=== PATIENT | male | born 1950 | race Caucasian/White ===

== ENCOUNTER 2023-02-12 09:18 | Emergency (ER) | payer OTHER, SELFPAY ==
[2023-02-12] VITALS (95 sets, daily range): BP systolic 74–138; BP diastolic 38–105; PULSE 56–138; RESP 18–36; TEMP 36.4; O2SAT 93–99; BMI 28.7
--- NOTE | 2023-02-12 09:25 | ED.FALL ---
HPI - Fall General Chief Complaint: Dizziness Stated Complaint: fall x 3 Time Seen by Provider: 02/12/23 09:22 History of Present Illness HPI Narrative: Patient is a 72-year-old male past medical history diabetes, hypertension presenting today with generalized weakness. He reports that he is not been feeling well for a couple of days he fell 3 times yesterday. Not sure of any injury but both knees hurt. He has been little dizzy and lightheaded. No obvious chest pain palpitations or shortness breath. He is no abdominal pain nausea or vomiting. He does not have any fever or chills. He has a decreased appetite decreased intake. Not on any anticoagulation medications. Patient reports that he did travel in a car to [place] last week but made frequent stops. He is complaining of right ankle pain and right thumb pain. He injured it during 1 of the falls Related Data Allergies Allergy/AdvReac Type Severity Reaction Status Date / Time ramipril Allergy Intermediate Cough Verified 02/12/23 18:05 Review of Systems Review of Systems ROS Unobtainable: All systems reviewed & are unremarkable except as noted in HPI and below Patient History Social History Smoking Status: Never smoker Exam Initial Vital Signs Initial Vital Signs: Vital Signs Pulse Rate 82 02/12/23 09:22 Blood Pressure 116/73 02/12/23 09:22 Pulse Oximetry 96 02/12/23 09:22 GENERAL: Alert week 72-year-old male and in no acute distress. HEENT: Head atraumatic,EOMI, pupils reactive, face symmetric, moist mucous membranes CARDIOVASCULAR: Regular rate and rhythm without murmurs, rubs or gallops. RESPIRATORY: Breath sounds equal bilaterally, no wheezes rales or rhonchi. ABDOMEN: Soft, nontender. Normoactive bowel sounds all 4 quadrants. No guarding or rebound. EXTREMITIES: Normal range of motion, no clubbing or edema. Neurovascularly intact NEUROLOGICAL: Alert and oriented x4.Normal gait and speech. SKIN: Warm, dry, no laceration, no petechiae, no rashes or lesions. Procedures Central Line Placement Right IJ: Patient Placed on Monitor/Pulse Ox: Yes MD Prep: mask, gown and gloves Central Line Prep: Chlorhexidine scrub and sterile drapes applied Local Anesthetic: lidocaine 1% Amount of anesthesia used (mL): 3 Ultrasound Used for Placement: Yes Central Line Lumen Inserted: triple Post Procedure: good blood return, all ports aspirated, flushed, capped, sterile dressing applied and line stabilization device Post Procedure X-Ray: tip of catheter in good position and no pneumothorax seen Patient Tolerated Procedure: Well and No complications Orthopedic Splinting/Casting Injury #1: Lower Extremity Injury Location: ankle Lower Extremity Immobilizer: posterior splint and stirrup splint Other Orthopedic Equipment: crutches Post splinting neuro exam: intact and no change Post splinting vascular exam: no change Placed by: Nursing Course Orders Ordered: ED Orders 02/12/23 11:01 UA Complete [Urinalysis and Microscopic] Stat 02/12/23 11:45 EKG-12 Lead Stat 02/12/23 11:52 Trop I [Troponin I] Stat 02/12/23 12:35 TSH [Thyroid Stimulating Hormone] Stat 02/12/23 12:36 MAG [Magnesium] Stat 02/12/23 14:56 CT angio chest PE protocol Stat BNP [NT-proBNP (BNP-Adult 18+)] Stat 02/12/23 15:25 EC echo limited Stat 02/12/23 17:26 Chest [XR chest 1V] Stat 02/12/23 22:15 PTT Partial Thromboplastin Lazarus Q6H 02/13/23 04:15 PTT Partial Thromboplastin Lazraus Q6H 02/13/23 05:00 Hemoglobin and Hematocrit DAILY Platelet Count DAILY 02/13/23 10:15 PTT Partial Thromboplastin Lazarus Q6H 02/14/23 05:00 Hemoglobin and Hematocrit DAILY Platelet Count DAILY Sodium Chloride (Normal Saline 0.9%) 1,000 mls @ 1,000 mls/hr IV CONT DULCE Last Infusion: 02/12/23 11:05 Dose: 0 mls/hr Documented By: Admin: 02/12/23 10:23 Dose: 1,000 mls/hr Documented By: RICHMOND NOREPINEPHRINE BITARTRATE/D5W (Levophed) 4 mg in 250 mls @ 34.019 mls/hr IV TITRATE DULCE; Protocol Last Titration: 02/12/23 19:18 Dose: 0 mcg/kg/min, 0 mls/hr Documented By: Admin: 02/12/23 19:06 Dose: 0.1 mcg/kg/min, 34.019 mls/hr Documented By: RICHMOND Heparin Sodium/Dextrose (Heparin Drip) 25,000 unit in 500 mls @ 32.658 mls/hr IV CONT DULCE; Protocol Last Admin: 02/12/23 19:25 Dose: 18 units/kg/hr, 32.658 mls/hr Documented By: RICHMOND Co-signed By: THOMAS Discontinued Medications Hydrocodone Bitart/Acetaminophen (Hydrocodone/Acet 5/325 Tablet) 1 tab PO NOW ONE Stop: 02/12/23 18:50 Last Admin: 02/12/23 18:54 Dose: 1 tab Documented By: RICHMOND Diltiazem HCl (Diltiazem 5 Mg/Ml Sdv) 10 mg IV NOW ONE Stop: 02/12/23 10:39 Last Admin: 02/12/23 10:56 Dose: 10 mg Documented By: RICHMOND Heparin Sodium (Porcine) (Heparin 5,000 Unit/Ml Vial) 7,300 unit 80 unit/kg (7300 unit) IV NOW ONE Stop: 02/12/23 16:13 Last Admin: 02/12/23 16:47 Dose: 7,300 unit Documented By: RICHMOND Sodium Chloride (Normal Saline 0.9%) 1,000 mls @ 1,000 mls/hr IV BOLUS ONE Stop: 02/12/23 11:37 Last Infusion: 02/12/23 12:32 Dose: 0 mls/hr Documented By: Admin: 02/12/23 11:05 Dose: 1,000 mls/hr Documented By: RICHMOND Magnesium Sulfate (Magnesium Sulfate) 2 gm in 50 mls @ 25 mls/hr IV NOW ONE Stop: 02/12/23 15:37 Last Infusion: 02/12/23 18:05 Dose: 0 mls/hr Documented By: RICHMOND Co-signed By: AMV Infusion: 02/12/23 15:50 Dose: 0 mls/hr Documented By: RICHMOND Co-signed By: MERVAT Admin: 02/12/23 14:34 Dose: 25 mls/hr Documented By: SEFERINO Co-signed By: RICHMOND Sodium Chloride (Normal Saline 0.9%) 1,000 mls @ 1,000 mls/hr IV BOLUS ONE Stop: 02/12/23 16:12 Last Infusion: 02/12/23 16:22 Dose: 0 mls/hr Documented By: Admin: 02/12/23 15:32 Dose: 1,000 mls/hr Documented By: RICHMOND Sodium Chloride (Normal Saline 0.9%) 1,000 mls @ 1,000 mls/hr IV BOLUS ONE Stop: 02/12/23 16:14 Last Infusion: 02/12/23 19:19 Dose: 0 mls/hr Documented By: Admin: 02/12/23 16:23 Dose: 1,000 mls/hr Documented By: RICHMOND Alteplase, Recombinant (Activase) 50 mg in 50 mls @ 25 mls/hr IV NOW ONE Stop: 02/12/23 19:14 Last Infusion: 02/12/23 19:24 Dose: 0 mls/hr Documented By: Admin: 02/12/23 17:32 Dose: 25 mls/hr Documented By: RICHMOND Ketorolac Tromethamine (Ketorolac 30 Mg/Ml Vial) 15 mg IV NOW ONE Stop: 02/12/23 12:52 Last Admin: 02/12/23 13:17 Dose: 15 mg Documented By: RICHMOND Metoprolol Tartrate (Metoprolol Tartrate 5 Mg/5 Ml Inj) 5 mg IV NOW ONE Stop: 02/12/23 13:11 Last Admin: 02/12/23 13:20 Dose: 5 mg Documented By: RICHMOND Potassium Chloride (Potassium Chloride 20 Meq Tab) 40 meq PO NOW ONE Stop: 02/12/23 12:39 Last Admin: 02/12/23 13:16 Dose: 40 meq Documented By: RICHMOND Vital Signs Vital signs: Vital Signs - 8 hr 02/12/23 12:00 02/12/23 12:00 02/12/23 12:15 Pulse Rate 67 Respiratory Rate 21 Blood Pressure 134/74 91/62 Pulse Oximetry 97 Oxygen Delivery Method 02/12/23 12:15 02/12/23 12:20 02/12/23 12:21 Pulse Rate 128 H 85 Respiratory Rate 24 22 Blood Pressure 138/79 Pulse Oximetry 96 97 Oxygen Delivery Method 02/12/23 12:21 02/12/23 12:30 02/12/23 12:31 Pulse Rate 74 95 H Respiratory Rate 22 24 Blood Pressure 122/96 H Pulse Oximetry 97 96 Oxygen Delivery Method 02/12/23 12:31 02/12/23 12:45 02/12/23 12:46 Pulse Rate 74 127 H Respiratory Rate 24 21 Blood Pressure 95/45 L Pulse Oximetry 96 95 Oxygen Delivery Method 02/12/23 12:46 02/12/23 13:00 02/12/23 13:06 Pulse Rate 71 127 H Respiratory Rate 20 26 H Blood Pressure 117/60 Pulse Oximetry 96 96 Oxygen Delivery Method 02/12/23 13:06 02/12/23 13:15 02/12/23 13:15 Pulse Rate 70 128 H Respiratory Rate 21 19 Blood Pressure 99/61 Pulse Oximetry 96 95 Oxygen Delivery Method Room Air 02/12/23 13:25 02/12/23 13:25 02/12/23 13:30 Pulse Rate 131 H Respiratory Rate 27 H Blood Pressure 119/87 116/83 Pulse Oximetry 96 Oxygen Delivery Method 02/12/23 13:30 02/12/23 13:45 02/12/23 13:46 Pulse Rate 58 L 73 Respiratory Rate 23 21 Blood Pressure 104/51 L Pulse Oximetry 96 96 Oxygen Delivery Method 02/12/23 13:46 02/12/23 13:50 02/12/23 13:55 Pulse Rate 56 L 57 L 88 Respiratory Rate 21 23 18 Blood Pressure Pulse Oximetry 96 96 95 Oxygen Delivery Method 02/12/23 14:00 02/12/23 14:00 02/12/23 14:05 Pulse Rate 71 60 Respiratory Rate 22 22 Blood Pressure 92/54 L Pulse Oximetry 94 94 Oxygen Delivery Method 02/12/23 14:10 02/12/23 14:15 02/12/23 14:15 Pulse Rate 89 113 H Respiratory Rate 24 22 Blood Pressure 89/54 L Pulse Oximetry 96 95 Oxygen Delivery Method 02/12/23 14:20 02/12/23 14:22 02/12/23 14:22 Pulse Rate 117 H 114 H Respiratory Rate 22 20 Blood Pressure 90/55 L Pulse Oximetry 95 95 Oxygen Delivery Method Room Air 02/12/23 14:25 02/12/23 14:26 02/12/23 14:26 Pulse Rate 68 66 Respiratory Rate 19 20 Blood Pressure 112/65 Pulse Oximetry 96 95 Oxygen Delivery Method 02/12/23 14:30 02/12/23 14:30 02/12/23 14:33 Pulse Rate 117 H 124 H Respiratory Rate 24 Blood Pressure 74/52 L 79/38 L Pulse Oximetry 94 Oxygen Delivery Method 02/12/23 14:33 02/12/23 14:35 02/12/23 14:35 Pulse Rate 114 H 119 H Respiratory Rate 23 22 Blood Pressure 110/64 Pulse Oximetry 94 94 Oxygen Delivery Method Room Air 02/12/23 14:41 02/12/23 14:45 02/12/23 14:50 Pulse Rate 61 117 H Respiratory Rate 20 23 Blood Pressure 95/58 L 93/51 L Pulse Oximetry 94 94 Oxygen Delivery Method Room Air 02/12/23 14:50 02/12/23 14:55 02/12/23 14:55 Pulse Rate 118 H 117 H Respiratory Rate 22 22 Blood Pressure 94/57 L Pulse Oximetry 94 94 Oxygen Delivery Method 02/12/23 15:00 02/12/23 15:05 02/12/23 15:05 Pulse Rate 117 H 118 H Respiratory Rate 22 21 Blood Pressure 83/59 L Pulse Oximetry 94 94 Oxygen Delivery Method 02/12/23 15:10 02/12/23 15:10 02/12/23 15:25 Pulse Rate 119 H Respiratory Rate 21 Blood Pressure 85/58 L 84/62 L Pulse Oximetry 94 Oxygen Delivery Method Room Air 02/12/23 15:25 02/12/23 15:27 02/12/23 15:27 Pulse Rate 118 H 118 H Respiratory Rate 28 H 23 Blood Pressure 105/59 L Pulse Oximetry 94 94 Oxygen Delivery Method 02/12/23 15:30 02/12/23 15:31 02/12/23 15:31 Pulse Rate 115 H 115 H Respiratory Rate 21 21 Blood Pressure 87/61 L Pulse Oximetry 93 93 Oxygen Delivery Method 02/12/23 15:35 02/12/23 15:35 02/12/23 15:37 Pulse Rate 115 H Respiratory Rate 22 Blood Pressure 86/56 L 78/57 L Pulse Oximetry 94 Oxygen Delivery Method 02/12/23 15:37 02/12/23 15:38 02/12/23 15:38 Pulse Rate 115 H 115 H Respiratory Rate 23 23 Blood Pressure 85/58 L Pulse Oximetry 95 94 Oxygen Delivery Method Room Air 02/12/23 15:40 02/12/23 15:41 02/12/23 15:41 Pulse Rate 117 H 117 H Respiratory Rate 28 H 27 H Blood Pressure 94/50 L Pulse Oximetry 94 94 Oxygen Delivery Method 02/12/23 15:45 02/12/23 15:50 02/12/23 15:50 Pulse Rate 118 H 119 H Respiratory Rate 25 H 20 Blood Pressure 93/59 L Pulse Oximetry 94 96 Oxygen Delivery Method 02/12/23 15:55 02/12/23 15:55 02/12/23 16:00 Pulse Rate 123 H Respiratory Rate 22 Blood Pressure 93/59 L 87/56 L Pulse Oximetry 94 Oxygen Delivery Method 02/12/23 16:00 02/12/23 16:05 02/12/23 16:05 Pulse Rate 121 H 75 Respiratory Rate 24 24 Blood Pressure 111/65 Pulse Oximetry 95 96 Oxygen Delivery Method 02/12/23 16:10 02/12/23 16:10 02/12/23 16:15 Pulse Rate 123 H Respiratory Rate 26 H Blood Pressure 104/54 L 88/52 L Pulse Oximetry 96 Oxygen Delivery Method 02/12/23 16:15 02/12/23 16:20 02/12/23 16:20 Pulse Rate 120 H 121 H Respiratory Rate 22 22 Blood Pressure 79/51 L Pulse Oximetry 96 96 Oxygen Delivery Method 02/12/23 16:22 02/12/23 16:22 02/12/23 16:25 Pulse Rate 121 H Respiratory Rate 29 H Blood Pressure 84/61 L 82/63 L Pulse Oximetry 96 Oxygen Delivery Method 02/12/23 16:25 02/12/23 16:28 02/12/23 16:28 Pulse Rate 121 H 120 H Respiratory Rate 24 21 Blood Pressure 86/60 L Pulse Oximetry 95 96 Oxygen Delivery Method 02/12/23 16:30 02/12/23 16:30 02/12/23 16:35 Pulse Rate 121 H Respiratory Rate 23 Blood Pressure 82/57 L 80/53 L Pulse Oximetry 95 Oxygen Delivery Method 02/12/23 16:35 02/12/23 16:37 02/12/23 16:37 Pulse Rate 122 H 121 H Respiratory Rate 22 22 Blood Pressure 89/51 L Pulse Oximetry 95 95 Oxygen Delivery Method 02/12/23 16:40 02/12/23 16:40 02/12/23 16:43 Pulse Rate 121 H Respiratory Rate 20 Blood Pressure 78/51 L 81/53 L Pulse Oximetry 95 Oxygen Delivery Method 02/12/23 16:43 02/12/23 16:45 02/12/23 16:45 Pulse Rate 120 H 121 H Respiratory Rate 23 31 H Blood Pressure 106/58 L Pulse Oximetry 95 Oxygen Delivery Method Room Air 02/12/23 16:49 02/12/23 16:50 02/12/23 16:50 Pulse Rate 109 H 101 H Respiratory Rate 26 H 26 H Blood Pressure 105/70 Pulse Oximetry 95 95 Oxygen Delivery Method 02/12/23 16:55 02/12/23 16:55 02/12/23 17:00 Pulse Rate 107 H 123 H Respiratory Rate 26 H 36 H Blood Pressure 97/63 Pulse Oximetry 94 Oxygen Delivery Method 02/12/23 17:02 02/12/23 17:02 02/12/23 17:05 Pulse Rate 123 H Respiratory Rate 27 H Blood Pressure 93/57 L 96/60 Pulse Oximetry Oxygen Delivery Method 02/12/23 17:05 02/12/23 17:10 02/12/23 17:10 Pulse Rate 123 H 112 H Respiratory Rate 25 H 24 Blood Pressure 106/57 L Pulse Oximetry 98 Oxygen Delivery Method 02/12/23 17:15 02/12/23 17:16 02/12/23 17:16 Pulse Rate 123 H 123 H Respiratory Rate 29 H 25 H Blood Pressure 113/55 L Pulse Oximetry 99 99 Oxygen Delivery Method 02/12/23 17:20 02/12/23 17:20 02/12/23 17:25 Pulse Rate 123 H Respiratory Rate 24 Blood Pressure 103/57 L 97/53 L Pulse Oximetry 98 Oxygen Delivery Method 02/12/23 17:25 02/12/23 17:30 02/12/23 17:31 Pulse Rate 124 H 125 H Respiratory Rate 24 30 H Blood Pressure 94/64 Pulse Oximetry 98 97 Oxygen Delivery Method 02/12/23 17:31 02/12/23 17:35 02/12/23 17:35 Pulse Rate 124 H 126 H Respiratory Rate 29 H 22 Blood Pressure 95/65 Pulse Oximetry 96 98 Oxygen Delivery Method 02/12/23 17:38 02/12/23 17:38 02/12/23 17:40 Pulse Rate 126 H Respiratory Rate 27 H Blood Pressure 108/64 103/66 Pulse Oximetry 98 Oxygen Delivery Method 02/12/23 17:40 Pulse Rate 127 H Respiratory Rate 23 Blood Pressure Pulse Oximetry 97 Oxygen Delivery Method MDM - Fall Lab Data 02/12/23 09:40 02/12/23 09:40 Labs: Lab Results 02/12/23 02/12/23 02/12/23 Range/Units 09:40 09:40 09:40 WBC 9.1 (4.5-11.0) X10^3/uL RBC 4.77 (4.5-5.9) X10^6/uL Hgb 14.8 (13.5-17.5) g/dL Hct 42.5 (41-53) % MCV 89.1 (80-100) fL MCH 31.0 (26-34) PG MCHC 34.7 (30-36) % RDW 13.6 (11.6-14.8) % Plt Count 130 L (150-400) X10^3/uL Neut % (Auto) 84.3 H (50-75) % Lymph % (Auto) 6.6 L (25-40) % [place] % (Auto) 8.0 (3-14) % Eos % (Auto) 0.7 L (2-4) % Baso % (Auto) 0.4 (0-2) % Neut # (Auto) 7700 H (0962-0397) /uL Lymph # (Auto) 600 L (7530-4941) /uL [place] # (Auto) 700 (0-900) /uL Eos # (Auto) 100 (0-450) /uL Baso # (Auto) 0 (0-100) /uL Sodium 135 L (137-145) mmol/L Potassium 3.8 (3.4-5.1) mmol/L Chloride 97 L (98-107) mmol/L Carbon Dioxide 26 (22-32) mmol/L BUN 39 H (9-20) mg/dL Creatinine 1.21 (0.66-1.25) mg/dL Estimated GFR > 60 (>60) mL/min BUN/Creatinine Ratio 32.2 H (6-22) Glucose 151 H (80-110) mg/dL Lactate 1.7 (0.7-2.1) mmol/L Calcium 9.9 (8.4-10.2) mg/dL Magnesium (1.6-2.3) mg/dL Total Bilirubin 0.9 (0.2-1.3) mg/dL AST 28 (17-59) IU/L ALT 27 (<50) IU/L Alkaline Phosphatase 71 (38-126) U/L Total Creatine Kinase 173 H (55-170) U/L Troponin I 0.096 H (0.01-0.034) ng/mL NT-Pro-B Natriuret Pep (<125) pg/mL Total Protein 7.1 (6.3-8.2) g/dL Albumin 4.0 (3.5-5.0) g/dL Globulin 3.1 (1.7-4.1) g/dL Albumin/Globulin Ratio 1.3 (1.0-2.8) Lipase 52 (23-300) U/L Procalcitonin 0.21 (<0.5) ng/mL TSH (0.47-4.68) uIU/mL Urine Color Urine Appearance Urine pH (4.5-8.0) Ur Specific Bastian (1.000-1.035) Urine Protein (Negative) Urine Glucose (UA) (Negative) g/dL Urine Ketones (NEGATIVE) Urine Occult Blood (Negative) Urine Nitrate (Negative) Urine Bilirubin (NEGATIVE) Urine Urobilinogen (0.2) E.U./dL Ur Leukocyte Esterase (NEGATIVE) Urine RBC (0-5/HPF) Urine WBC (0-5/HPF) Ur Squamous Epith Cells (0-5/HPF) Urine Bacteria (None) Ur Culture Indicated? SARS-CoV-2 (PCR) (Negative) Influenza A (RT-PCR) (NEGATIVE) Influenza B (RT-PCR) (NEGATIVE) RSV (PCR) (Negative) 02/12/23 02/12/23 02/12/23 Range/Units 09:40 11:01 11:52 WBC (4.5-11.0) X10^3/uL RBC (4.5-5.9) X10^6/uL Hgb (13.5-17.5) g/dL Hct (41-53) % MCV (80-100) fL MCH (26-34) PG MCHC (30-36) % RDW (11.6-14.8) % Plt Count (150-400) X10^3/uL Neut % (Auto) (50-75) % Lymph % (Auto) (25-40) % [place] % (Auto) (3-14) % Eos % (Auto) (2-4) % Baso % (Auto) (0-2) % Neut # (Auto) (2616-4183) /uL Lymph # (Auto) (8938-0032) /uL [place] # (Auto) (0-900) /uL Eos # (Auto) (0-450) /uL Baso # (Auto) (0-100) /uL Sodium (137-145) mmol/L Potassium (3.4-5.1) mmol/L Chloride (98-107) mmol/L Carbon Dioxide (22-32) mmol/L BUN (9-20) mg/dL Creatinine (0.66-1.25) mg/dL Estimated GFR (>60) mL/min BUN/Creatinine Ratio (6-22) Glucose (80-110) mg/dL Lactate (0.7-2.1) mmol/L Calcium (8.4-10.2) mg/dL Magnesium (1.6-2.3) mg/dL Total Bilirubin (0.2-1.3) mg/dL AST (17-59) IU/L ALT (<50) IU/L Alkaline Phosphatase (38-126) U/L Total Creatine Kinase (55-170) U/L Troponin I 0.070 H (0.01-0.034) ng/mL NT-Pro-B Natriuret Pep (<125) pg/mL Total Protein (6.3-8.2) g/dL Albumin (3.5-5.0) g/dL Globulin (1.7-4.1) g/dL Albumin/Globulin Ratio (1.0-2.8) Lipase (23-300) U/L Procalcitonin (<0.5) ng/mL TSH (0.47-4.68) uIU/mL Urine Color Yellow Urine Appearance Clear Urine pH 5.5 (4.5-8.0) Ur Specific Bastian 1.010 (1.000-1.035) Urine Protein Negative (Negative) Urine Glucose (UA) Negative (Negative) g/dL Urine Ketones Trace H (NEGATIVE) Urine Occult Blood Negative (Negative) Urine Nitrate Negative (Negative) Urine Bilirubin Negative (NEGATIVE) Urine Urobilinogen 1.0 (0.2) E.U./dL Ur Leukocyte Esterase Negative (NEGATIVE) Urine RBC None seen (0-5/HPF) Urine WBC 0-1/hpf (0-5/HPF) Ur Squamous Epith Cells None seen (0-5/HPF) Urine Bacteria None seen (None) Ur Culture Indicated? Cult not indicated SARS-CoV-2 (PCR) Negative (Negative) Influenza A (RT-PCR) Flu a negative (NEGATIVE) Influenza B (RT-PCR) Flu b negative (NEGATIVE) RSV (PCR) Negative (Negative) 02/12/23 02/12/23 02/12/23 Range/Units 12:35 12:36 14:56 WBC (4.5-11.0) X10^3/uL RBC (4.5-5.9) X10^6/uL Hgb (13.5-17.5) g/dL Hct (41-53) % MCV (80-100) fL MCH (26-34) PG MCHC (30-36) % RDW (11.6-14.8) % Plt Count (150-400) X10^3/uL Neut % (Auto) (50-75) % Lymph % (Auto) (25-40) % [place] % (Auto) (3-14) % Eos % (Auto) (2-4) % Baso % (Auto) (0-2) % Neut # (Auto) (5282-1353) /uL Lymph # (Auto) (4114-4676) /uL [place] # (Auto) (0-900) /uL Eos # (Auto) (0-450) /uL Baso # (Auto) (0-100) /uL Sodium (137-145) mmol/L Potassium (3.4-5.1) mmol/L Chloride (98-107) mmol/L Carbon Dioxide (22-32) mmol/L BUN (9-20) mg/dL Creatinine (0.66-1.25) mg/dL Estimated GFR (>60) mL/min BUN/Creatinine Ratio (6-22) Glucose (80-110) mg/dL Lactate (0.7-2.1) mmol/L Calcium (8.4-10.2) mg/dL Magnesium 1.6 (1.6-2.3) mg/dL Total Bilirubin (0.2-1.3) mg/dL AST (17-59) IU/L ALT (<50) IU/L Alkaline Phosphatase (38-126) U/L Total Creatine Kinase (55-170) U/L Troponin I (0.01-0.034) ng/mL NT-Pro-B Natriuret Pep 8700 H (<125) pg/mL Total Protein (6.3-8.2) g/dL Albumin (3.5-5.0) g/dL Globulin (1.7-4.1) g/dL Albumin/Globulin Ratio (1.0-2.8) Lipase (23-300) U/L Procalcitonin (<0.5) ng/mL TSH 5.93 H (0.47-4.68) uIU/mL Urine Color Urine Appearance Urine pH (4.5-8.0) Ur Specific [place] (1.000-1.035) Urine Protein (Negative) Urine Glucose (UA) (Negative) g/dL Urine Ketones (NEGATIVE) Urine Occult Blood (Negative) Urine Nitrate (Negative) Urine Bilirubin (NEGATIVE) Urine Urobilinogen (0.2) E.U./dL Ur Leukocyte Esterase (NEGATIVE) Urine RBC (0-5/HPF) Urine WBC (0-5/HPF) Ur Squamous Epith Cells (0-5/HPF) Urine Bacteria (None) Ur Culture Indicated? SARS-CoV-2 (PCR) (Negative) Influenza A (RT-PCR) (NEGATIVE) Influenza B (RT-PCR) (NEGATIVE) RSV (PCR) (Negative) Urine Dip Bedside Urine Glucose Negative Bedside Urine Bilirubin - Negative Bedside Urine Ketone +/- 5 Urine Specific Bastian 1.010 Bedside Urine Occult Blood - Negative Bedside Urine pH 6.0 Bedside Urine Protein +/- 15 Bedside Urine Urobilinogen - Negative Bedside Urine Nitrite - Negative Bedside Urine Leukocytes - Negative Esterase Imaging Data Chest x-ray: Radiologist's Impression: PROCEDURE:? XR CHEST 1V ? INDICATIONS:? weakness fall ? TECHNIQUE:? One view of the chest was acquired.? ? COMPARISON:? [facility], CR, XR CHEST 1 VIEW, 05/22/2021, 14:27. ? FINDINGS:? ? Surgical changes and devices:? None.? ? Lungs and pleura:? No consolidation.? Bibasilar atelectasis.? Lower lung volumes.? No pleural effusions or pneumothorax.? ? Mediastinum:? Mediastinal contours appear normal.? Heart size is normal.? ? Bones and chest wall:? No suspicious bony lesions.? Overlying soft tissues appear unremarkable.? ? ? IMPRESSION:? No significant acute cardiopulmonary abnormality. ? Bibasilar atelectasis.? Lower lung volumes.? ? Dictated by: Ankush Murray M.D. on 02/12/2023 at 9:50 ?? CT scan - head: Radiologist's Impression: PROCEDURE:? CT HEAD/BRAIN WO CON ? INDICATIONS:? fall x3 yesterday ? TECHNIQUE:? Noncontrast 4.5 mm thick angled axial sections acquired from the foramen magnum to the vertex, with coronal and sagittal reformats.? For radiation dose reduction, the following was used:? automated exposure control, adjustment of mA and/or kV according to patient size.? ? COMPARISON:? [facility], MR, MR BRAIN WITHOUT CONTRAST, 05/23/2021, 9:49. ? FINDINGS:? Image quality:? Good ? CSF spaces: Basal cisterns are patent. Lateral ventricles are symmetric. Volume:? Vascular calcifications. Periventricular white matter disease is commonly seen with chronic microangiopathy. Volume loss is present. These findings are moderate ? Brain: No intracranial hemorrhage. Reyes-white differentiation is grossly maintained. ? Craniofacial structures: No displaced fracture. Sinuses are clear. Orbits are intact. ? IMPRESSION:? No acute intracranial abnormality. ? ? Dictated by: Narinder Kemp M.D. on 02/12/2023 at 10:07 ? ? Approved by: Narinder Kemp M.D. on 02/12/2023 at 10:09 ? Extremity x-ray #1: Radiologist's Impression: PROCEDURE:? XR ANKLE RT MIN 3V ? INDICATIONS:? fall swelling pain ? TECHNIQUE:? 3 views of the ankle were acquired.? ? COMPARISON:? None. ? FINDINGS:? ? Bones:? Suspected minimally displaced lateral malleolus fracture.? There may also be an age-indeterminate fracture of the medial malleolus. Degenerative changes also seen.? Plantar calcaneal enthesopathy.? Calcifications of the plantar fascia. ? Partially seen metatarsal hardware. ? Soft tissues:? Soft tissue swelling.? Vascular calcifications. ? ? IMPRESSION:? Suspected bimalleolar minimally displaced fractures. ? ? Dictated by: Narinder Kemp M.D. on 02/12/2023 at 11:25 ? ? Extremity x-ray #2: Radiologist's Impression: PROCEDURE:? XR FINGER RT MIN 2V ? INDICATIONS:? fall injury.pain. ? TECHNIQUE:? AP hand, 2 views of the 1st finger(s) acquired.? ? COMPARISON:? None. ? FINDINGS:? ? Bones:? No acute appearing displaced fracture or dislocation involving the 1st finger.? Age-indeterminate bone fragment seen adjacent to the interphalangeal joint, possibly from remote trauma or degeneration. ? Chronic appearing moderate deformity involving the 5th metacarpal.? Chronic appearing deformity involving the carpal bones.? Chronic appearing bone fragment adjacent to the distal radius.? Advanced proximal hand and wrist arthritic changes.? Subchondral lucencies are present. ? Soft tissues:? No suspicious calcifications. ? IMPRESSION:? No definite acute fracture or dislocation involving the 1st finger.? If there is high concern for occult injury, consider repeat radiography or cross-sectional imaging. ? Chronic appearing deformity of the 5th metacarpal and bone fragment adjacent to the distal radius.? Advanced degenerative changes of the proximal hand, and carpal joints.? Advanced osteoarthritis, possibly secondary to prior inflammatory, traumatic, or neuropathic arthropathy is a consideration. ? Dictated by: Narinder Kemp M.D. on 02/12/2023 at 11:38 ? ? Approved by: Narinder Kemp M.D. on 02/12/2023 at 11:40 ? CT scan - chest: Radiologist's Impression: PROCEDURE:? CT ANGIO CHEST PE PROTOCOL ? INDICATIONS:? new onset afib ? TECHNIQUE:? After the administration of intravenous contrast, 2 mm thick sections acquired from the pulmonary apices to the posterior costophrenic angles.? 3-dimensional maximum intensity projection (MIP) coronal and sagittal reformats were then acquired through the thorax.? For radiation dose reduction, the following was used:? automated exposure control, adjustment of mA and/or kV according to patient size.? ? COMPARISON:? None. ? FINDINGS:? Image quality:? Good ? Lungs and pleura:? Mild bibasilar opacities.? No drainable pleural effusion.? There is lower lung bronchial wall thickening.? Superimposed atelectasis.? Left upper lobe 5-6 millimeter nodule (). ? Mediastinum, heart, and esophagus:? Subsegmental pulmonary emboli in the lower lobes.? Mildly dilated pulmonary artery.? Coronary calcifications.? Borderline cardiomegaly.? Small pericardial effusion.? No pathologic lymph nodes by size criteria. ? Chest wall and thyroid:? Right shoulder periarticular ossifications. ? Upper abdomen:? No gross abnormality on these arterial phase images.? Reflux of contrast seen in the hepatic veins. ? Bones:? No acute or suspicious osseous finding.? There are degenerative changes. ? IMPRESSION:? Bilateral pulmonary subsegmental emboli in the lower lobes.? There are CT signs of right heart dysfunction, which may be acute or chronic. ? Cardiomegaly, biatrial enlargement, and coronary calcifications. ? Bibasilar pulmonary opacities may represent airspace disease or possibly infarcts in the setting of PEs.? 5-6 millimeter left upper lobe pulmonary nodules also present.? There is superimposed atelectasis. Consider future imaging surveillance to assess for resolution.? ? Discussed with Dr. Reaves. ? ? ? Dictated by: Narinder Kemp M.D. on 02/12/2023 at 16:04 ? ? CXR2: Radiologist's Impression: PROCEDURE:? XR CHEST 1V ? INDICATIONS:? line placement ? TECHNIQUE:? One view of the chest was acquired.? ? COMPARISON:? [facility], CT, CT ANGIO CHEST PE PROTOCOL, 02/12/2023, 15:19.? [facility], CR, XR CHEST 1V, 02/12/2023, 9:34. ? FINDINGS:? ? Surgical changes and devices:? Right IJ central venous line with the catheter tip at the middle 3rd of the SVC, new. ? Lungs and pleura:? Lungs appear clear.? Low lung volumes.? No pleural effusions or pneumothorax.? ? Mediastinum:? Mediastinal contours appear normal.? Heart size is normal.? ? Bones and chest wall:? No suspicious bony lesions.? Overlying soft tissues appear unremarkable.? ? ? IMPRESSION:? Right IJ central venous line with the catheter tip at the middle 3rd of the SVC.? No pneumothorax. ? ? Dictated by: Ankush Murray M.D. on 02/12/2023 at 17:5 ECG Data Interpretation: Sinus rhythm rate 78 OK interval 202 QRS 146 QTC 481 right bundle-branch block noted no priors to compare EKG 2. Probable atrial flutter, SVT right bundle-branch noted no obvious changes rate 135 EKG 3. Similar to EKGs G 2. Heart rate 190 MDM Narrative Medical decision making narrative: Patient 72-year-old male who presents with multiple falls and possible syncopal episodes 3 yesterday. Complaining of right ankle pain he is found to have a presumed bimalleolar fracture on x-ray he is splinted. He is monitor and frequently seems to go into an atrial flutter. Blood pressure decreases into the 80s he self convert himself out blood pressure sometimes improves and sometimes does not. He is given IV fluids minimal improvement. Dr. Alarcon consulted in regards to falling possible syncope new onset atrial flutter. He agrees that patient needs to be transferred for monitoring possibly electrophysiology. He also recommends that magnesium be greater than 2 and potassium greater than 4. Magnesium replaced by a Mag rider blood pressure decreasing thought possibly to be due to magnesium heart rate again is variable sometimes sinus some problems atrial fibrillation. Patient continues to be hypotensive tachycardic in the 120s not height pox it. CT angio was done and does confirm bilateral pulmonary emboli with right heart strain. Troponin is 0.09 with repeat of 0.07. BNP is also noted to be elevated at 8700. He has received IV fluids he is not hypoxic. Bedside echocardiogram was done but unfortunately due to some technical difficulties it was not pushing cardiology has not read it. Patient course in the ED mostly hypotensive in and out of this atrial fibrillation has some congestive heart failure found to have pulmonary emboli. Considering tPA or pulmonary emboli. Blood pressures were in the 70s Levophed was hung at bedside but then blood pressure quickly improved. Dr. Rausch, watch inspector at [facility] updated patient's symptoms test results agrees seems reasonable for tPA he and he is also happy to accept Discussion with patient at bedside risks and benefits of tPA. He has no contraindications to tPA and he agrees. He is given 50 mg over 2 hours. He was given heparin bolus prior to tPA. Heparin and tPA are not simultaneously being administered. Blood pressure does seem to be a bit better Critical Care Time Critical Care Time Critical Care Time: Yes Total Critical Care Time: 85 Attestation: The high probability of a clinically significant, sudden or life threatening deterioration of the [cardiovascular] system(s) required my full and direct attention, intervention and personal management. The aggregate critical care time was 85 minutes. This time is in addition to time spent performing reported procedures but includes the following: [x] Data Review and interpretation [x] Patient assessment and monitoring of vital signs [x] Documentation [x] Medication orders and management Discharge Plan Departure Patient Disposition: [facility] Clinical Impression: Pulmonary embolism, Congestive heart failure, Atrial fibrillation, Bimalleolar fracture of right ankle
--- NOTE | 2023-02-12 09:34 | DI.RAD.S_ITS ---
PROCEDURE: XR CHEST 1V INDICATIONS: weakness fall TECHNIQUE: One view of the chest was acquired. COMPARISON: [facility], CR, XR CHEST 1 VIEW, 05/22/2021, 14:27. FINDINGS: Surgical changes and devices: None. Lungs and pleura: No consolidation. Bibasilar atelectasis. Lower lung volumes. No pleural effusions or pneumothorax. Mediastinum: Mediastinal contours appear normal. Heart size is normal. Bones and chest wall: No suspicious bony lesions. Overlying soft tissues appear unremarkable. IMPRESSION: No significant acute cardiopulmonary abnormality. Bibasilar atelectasis. Lower lung volumes. Dictated by: Ankush Murray M.D. on 02/12/2023 at 9:50 Approved by: Ankush Murray M.D. on 02/12/2023 at 9:51
--- NOTE | 2023-02-12 09:34 | DI.CT.S_ITS ---
PROCEDURE: CT HEAD/BRAIN WO CON INDICATIONS: fall x3 yesterday TECHNIQUE: Noncontrast 4.5 mm thick angled axial sections acquired from the foramen magnum to the vertex, with coronal and sagittal reformats. For radiation dose reduction, the following was used: automated exposure control, adjustment of mA and/or kV according to patient size. COMPARISON: [facility], MR, MR BRAIN WITHOUT CONTRAST, 05/23/2021, 9:49. FINDINGS: Image quality: Good CSF spaces: Basal cisterns are patent. Lateral ventricles are symmetric. Volume: Vascular calcifications. Periventricular white matter disease is commonly seen with chronic microangiopathy. Volume loss is present. These findings are moderate Brain: No intracranial hemorrhage. Reyes-white differentiation is grossly maintained. Craniofacial structures: No displaced fracture. Sinuses are clear. Orbits are intact. IMPRESSION: No acute intracranial abnormality. Dictated by: Narinder Kemp M.D. on 02/12/2023 at 10:07 Approved by: Narinder Kemp M.D. on 02/12/2023 at 10:09
[2023-02-12 09:55] LABS: Add Manual Diff / Slide Review NO; Basophils Absolute Auto 0 /uL (0-100); Basophils Percent Auto 0.4 % (0-2); Eosinophils Absolute Auto 100 /uL (0-450); Eosinophils Percent Auto 0.7 % (2-4); Hematocrit 42.5 % (41-53); Hemoglobin 14.8 g/dL (13.5-17.5); Lymphocytes Absolute Auto 600 /uL (1100-4500); Lymphocytes Percent Auto 6.6 % (25-40); Mean Corpuscular HGB Conc 34.7 % (30-36); Mean Corpuscular Volume 89.1 fL (80-100); Monocytes Absolute Auto 700 /uL (0-900); Neutrophils Absolute Auto 7700 /uL (1500-7000); Neutrophils Percent Auto 84.3 % (50-75); Platelet Count 130 X10^3/uL (150-400); Red Blood Cell Count 4.77 X10^6/uL (4.5-5.9); Red Cell Distribution Width 13.6 % (11.6-14.8); White Blood Cell Count 9.1 X10^3/uL (4.5-11.0)
[2023-02-12 10:06] LABS: Alanine Aminotransferase 27 IU/L (<50); Albumin Globulin Ratio 1.3 (1.0-2.8); Alkaline Phosphatase 71 U/L (38-126); Aspartate Aminotransferase 28 IU/L (17-59); BUN Creatinine Ratio 32.2 (6-22); Bilirubin Total 0.9 mg/dL (0.2-1.3); Blood Urea Nitrogen 39 mg/dL (9-20); Calcium 9.9 mg/dL (8.4-10.2); Carbon Dioxide 26 mmol/L (22-32); Chloride 97 mmol/L (98-107); Creatine Kinase 173 U/L (55-170); Estimated Glomerular Filt Rate > 60 mL/min (>60); Globulin 3.1 g/dL (1.7-4.1); Glucose 151 mg/dL (80-110); HEMOLYSIS 17 (0-50); Lactate (Lactic Acid) 1.7 mmol/L (0.7-2.1); Lipase 52 U/L (23-300); Potassium 3.8 mmol/L (3.4-5.1); Sodium 135 mmol/L (137-145); Total Protein 7.1 g/dL (6.3-8.2)
--- NOTE | 2023-02-12 10:17 | DI.RAD.S_ITS ---
PROCEDURE: XR ANKLE RT MIN 3V INDICATIONS: fall swelling pain TECHNIQUE: 3 views of the ankle were acquired. COMPARISON: None. FINDINGS: Bones: Suspected minimally displaced lateral malleolus fracture. There may also be an age-indeterminate fracture of the medial malleolus. Degenerative changes also seen. Plantar calcaneal enthesopathy. Calcifications of the plantar fascia. Partially seen metatarsal hardware. Soft tissues: Soft tissue swelling. Vascular calcifications. IMPRESSION: Suspected bimalleolar minimally displaced fractures. Dictated by: Narinder Kemp M.D. on 02/12/2023 at 11:25 Approved by: Narinder Kemp M.D. on 02/12/2023 at 11:26
[2023-02-12 10:19] LABS: Troponin I 0.096 ng/mL (0.01-0.034)
[2023-02-12 10:23] LABS: Procalcitonin 0.21 ng/mL (<0.5)
[2023-02-12] MEDS: SODIUM CHLORIDE 0.9% 1,000 ML 1000 ML IV ×4 (10:23→16:23)
--- NOTE | 2023-02-12 10:42 | DI.RAD.S_ITS ---
PROCEDURE: XR FINGER RT MIN 2V INDICATIONS: fall injury.pain. TECHNIQUE: AP hand, 2 views of the 1st finger(s) acquired. COMPARISON: None. FINDINGS: Bones: No acute appearing displaced fracture or dislocation involving the 1st finger. Age-indeterminate bone fragment seen adjacent to the interphalangeal joint, possibly from remote trauma or degeneration. Chronic appearing moderate deformity involving the 5th metacarpal. Chronic appearing deformity involving the carpal bones. Chronic appearing bone fragment adjacent to the distal radius. Advanced proximal hand and wrist arthritic changes. Subchondral lucencies are present. Soft tissues: No suspicious calcifications. IMPRESSION: No definite acute fracture or dislocation involving the 1st finger. If there is high concern for occult injury, consider repeat radiography or cross-sectional imaging. Chronic appearing deformity of the 5th metacarpal and bone fragment adjacent to the distal radius. Advanced degenerative changes of the proximal hand, and carpal joints. Advanced osteoarthritis, possibly secondary to prior inflammatory, traumatic, or neuropathic arthropathy is a consideration. Dictated by: Narinder Kemp M.D. on 02/12/2023 at 11:38 Approved by: Narinder Kemp M.D. on 02/12/2023 at 11:40
[2023-02-12] MEDS: dilTIAZem 5 MG/ML SDV 10 MG IV (10:56)
[2023-02-12 11:06] LABS: COVID-19 CEPHEID 4-PLEX PCR Negative (Negative); Influenza A - CEPHEID Flu A NEGATIVE (NEGATIVE); Influenza B - CEPHEID Flu B NEGATIVE (NEGATIVE); Respiratory Syncytial Virus Negative (Negative)
[2023-02-12 11:14] LABS: Appearance Urine UA CLEAR; Bilirubin Urine UA NEGATIVE (NEGATIVE); Color Urine UA YELLOW; Glucose Urine UA NEGATIVE (Negative); Ketones Urine UA TRACE (NEGATIVE); Leukocyte Esterase Urine UA NEGATIVE (NEGATIVE); Nitrite Urine UA NEGATIVE (Negative); Occult Blood Urine UA NEGATIVE (Negative); Protein Urine UA NEGATIVE (Negative); pH Urine UA 5.5 (4.5-8.0)
[2023-02-12 11:21] LABS: Bacteria Urine None Seen; Culture Indicated Urine Cult Not Indicated; RBC Urine None Seen (0-5/HPF); Squamous Epithelial Cell Urine None Seen (0-5/HPF); WBC Urine 0-1/HPF (0-5/HPF)
[2023-02-12 12:46] LABS: Magnesium 1.6 mg/dL (1.6-2.3)
[2023-02-12] MEDS: POTASSIUM CHLORIDE 20 MEQ TAB 40 MEQ PO (13:16)
[2023-02-12] MEDS: KETOROLAC 30 MG/ML VIAL 15 MG IV (13:17)
[2023-02-12 13:19] LABS: Thyroid Stimulating Hormone 5.93 uIU/mL (0.47-4.68)
[2023-02-12] MEDS: METOPROLOL TARTRATE 5 MG/5 ML INJ IV (13:20)
[2023-02-12] MEDS: MAGNESIUM SULFATE 2 GM/50 ML PIGGYBACK IV (14:34)
--- NOTE | 2023-02-12 14:56 | DI.CT.S_ITS ---
PROCEDURE: CT ANGIO CHEST PE PROTOCOL INDICATIONS: new onset afib TECHNIQUE: After the administration of intravenous contrast, 2 mm thick sections acquired from the pulmonary apices to the posterior costophrenic angles. 3-dimensional maximum intensity projection (MIP) coronal and sagittal reformats were then acquired through the thorax. For radiation dose reduction, the following was used: automated exposure control, adjustment of mA and/or kV according to patient size. COMPARISON: None. FINDINGS: Image quality: Good Lungs and pleura: Mild bibasilar opacities. No drainable pleural effusion. There is lower lung bronchial wall thickening. Superimposed atelectasis. Left upper lobe 5-6 millimeter nodule (5/85). Mediastinum, heart, and esophagus: Subsegmental pulmonary emboli in the lower lobes. Mildly dilated pulmonary artery. Coronary calcifications. Borderline cardiomegaly. Small pericardial effusion. No pathologic lymph nodes by size criteria. Chest wall and thyroid: Right shoulder periarticular ossifications. Upper abdomen: No gross abnormality on these arterial phase images. Reflux of contrast seen in the hepatic veins. Bones: No acute or suspicious osseous finding. There are degenerative changes. IMPRESSION: Bilateral pulmonary subsegmental emboli in the lower lobes. There are CT signs of right heart dysfunction, which may be acute or chronic. Cardiomegaly, biatrial enlargement, and coronary calcifications. Bibasilar pulmonary opacities may represent airspace disease or possibly infarcts in the setting of PEs. 5-6 millimeter left upper lobe pulmonary nodules also present. There is superimposed atelectasis. Consider future imaging surveillance to assess for resolution. Discussed with Dr. Reaves. Dictated by: Narinder Kemp M.D. on 02/12/2023 at 16:04 Approved by: Narinder Kemp M.D. on 02/12/2023 at 16:10
[2023-02-12 15:22] LABS: NT-proBNP (BNP-Adult 18+) 8700 pg/mL (<125)
--- NOTE | 2023-02-12 16:16 | DI.ECHO.S_ITS ---
[place] [facility]---------+ [facility] +---------+ : : [address] : : : : [id number] : : : : Phone: [phone]---------+ Echocardiogram Report + + :Name: YANNICK RAYGOZA Study Date: 02/12/2023 Height: 70 in : :[facility] ReadingLocation: Weight: 200 lb: : Gender: Male BSA: 2.1 m2 : :: 1950 Age: 72 yrs BP: 87/56 mmHg: :Reason For Study: ATRIAL FIBRILLATION, HYPOTENSION : :Ordering Physician: NELIDA, : :RUKHSANA Performed By: Shante Molina : :Referring: RUKHSANA KRAUSE : + + Interpretation Summary Limited Echo: 1) Normal left ventricular size with mildly to moderately reduced systolic function (EF 40-45%). 2) Mildly enlarged right ventricle with mildly reduced function. 3) The right ventricular systolic pressure is estimated to be at least 33 mmHg based on an estimated right atrial pressure of 15 mm Hg. 4) No prior Echo available for comparison.. Procedure: Images were not obtained from all of the standard acoustic windows due to the limited scope of the study. The study quality was technically adequate. There is no prior echocardiogram noted for this patient. The heart rate ranged between 120-125 bpm during the study. Left Ventricle: The left ventricle is normal in size. Left ventricular wall thickness is borderline increased. The ejection fraction is estimated to be 40-45%. There is mild to moderate global hypokinesis of the left ventricle. Right Ventricle: The right ventricle is mildly dilated. Right ventricular systolic function is mildly reduced. Atria: Right atrial size is normal. Mitral Valve: There is mild to moderate mitral annular calcification. Aortic Valve: The aortic valve is trileaflet. The aortic valve is slightly calcified. The aortic valve opens well. Tricuspid Valve: There is mild tricuspid regurgitation. The right ventricular systolic pressure is estimated to be at least 33 mmHg based on an estimated right atrial pressure of 15 mm Hg. Great Vessels: The IVC is dilated (diameter is greater than 2.1 cm) and it collapses less than 50% with a sniff. This suggests a high right atrial pressure of 15 mm Hg. Pericardium/ Pleura There is no pericardial effusion. There is no pleural effusion. MMode/2D Measurements & Calculations LVIDd: 4.9 cm LA A4 area: 20.8 cm2 LVIDs: 3.4 cm LA length (vol): 5.8 cm FS: 30.2 % IVSd: 1.1 cm LVPWd: 0.84 cm LV millan. diameter/BSA (cm/m^2): 2.3 LV sys. diameter/BSA (cm/m^2): 1.6 RA long axis: 5.7 cm RVD1 (basal): 3.5 cm RA area: 19.2 cm2 RVD2 (mid): 2.7 cm RA vol: 55.5 ml TAPSE: 1.3 cm RA : 26.6 ml/m2 IVC diam: 2.2 cm Doppler Measurements & Calculations TR max gemma: 209.4 cm/sec TR max P.5 mmHg Reading Physician:04:55 PM
[2023-02-12] MEDS: HEPARIN 5,000 UNIT/ML VIAL 7300 UNIT IV (16:47)
--- NOTE | 2023-02-12 17:26 | DI.RAD.S_ITS ---
PROCEDURE: XR CHEST 1V INDICATIONS: line placement TECHNIQUE: One view of the chest was acquired. COMPARISON: [facility], CT, CT ANGIO CHEST PE PROTOCOL, 02/12/2023, 15:19. [facility], CR, XR CHEST 1V, 02/12/2023, 9:34. FINDINGS: Surgical changes and devices: Right IJ central venous line with the catheter tip at the middle 3rd of the SVC, new. Lungs and pleura: Lungs appear clear. Low lung volumes. No pleural effusions or pneumothorax. Mediastinum: Mediastinal contours appear normal. Heart size is normal. Bones and chest wall: No suspicious bony lesions. Overlying soft tissues appear unremarkable. IMPRESSION: Right IJ central venous line with the catheter tip at the middle 3rd of the SVC. No pneumothorax. Dictated by: Ankush Murray M.D. on 02/12/2023 at 17:53 Approved by: Ankush Murray M.D. on 02/12/2023 at 17:54
[2023-02-12] MEDS: ALTEPLASE 50 MG/50 ML VIAL 25 MG IV (17:32)
--- NOTE | 2023-02-12 17:46 | PC.NURSE ---
Accpeted at [facility]. ICU room 340-1, Report to [phone]. Crystal from transfer center / Dr. Cortez accepting doctor. Pt to go by [facility] r/t critical /unstable nature and need to minimize out of hospital time. [facility] notified and will call back with ETA.
[2023-02-12] MEDS: HYDROCODONE/ACET 5/325 TABLET 1 TAB PO (18:54)
[2023-02-12] MEDS: NOREPINEPHRINE BITARTRATE/D5W 4 MG/250 ML PLAST..BAG 34.019 MG IV (19:06)
[2023-02-12] MEDS: HEPARIN DRIP 25,000 UNIT/500 ML IV.SOLN 32.658 UNIT IV (19:25)
== END 2023-02-12 19:57 | disposition short-term general hospital (02) ==
PROVIDERS: Emergency Provider Emergency Medicine
DX: I26.99 Other pulmonary embolism without acute cor pulmonale (principal); I50.9 Heart failure, unspecified; I48.91 Unspecified atrial fibrillation; S82.841A Displaced bimalleolar fracture of right lower leg, initial encounter for closed fracture; R29.6 Repeated falls; W18.30XA Fall on same level, unspecified, initial encounter; Z20.822 Contact with and (suspected) exposure to COVID-19
CPT/HCPCS: 0241U; 29515; 36415; 36569; 70450; 71045; 71275; 73140; 73610; 80053; 81001; 81003; 82550; 83605; 83690; 83735; 83880; 84145; 84443; 84484; 85025; 87040; 93005; 93010; 93307; 96361; 96365; 96366; 96367; 96375; 99285; 99291; 99292; J1644; J1885; J2997; J3475; Q9967